=== PATIENT | female | born 1955 | race Caucasian/White ===

== ENCOUNTER → 2016-11-07 | Outpatient (CLI) | payer BC ==
[~2016-11-07] MED LIST: ACETAMINOPHEN PO; ACETAMINOPHEN500 M6 PO; ASPIRIN ENTERI325 M1 PO; BAYER ASPIRIN325 M1 PO; CETIRIZINE HCL10 MG PO; FLONASE ALLERG9.9 ML; HYDROCODON-ACE1 EAC5 PO; VOLTAREN75 MG PO
--- NOTE | ~2016-11-07 | CO ---
Unit #: [id number] #: [id number] Patient: RAVI REEVES [id number] [address] [place], [place] [address] [id number] O MR#: [id number] NAME: RAVI REEVES ROOM: Age: 61 Sex: F Admission Date: 11/07/2016 : 1955 Attending Physician: Bobo Mccollum M.D. Primary Care Physician: Oscar Layton M.D. Consultation Date: 11/07/2016 CONSULTATION REPORT REASON FOR CONSULT Preoperative medical evaluation prior to left total hip arthroplasty, scheduled by Dr. Mccollum for 11/14/2016. HISTORY OF PRESENT ILLNESS The patient is a 61-year-old female, who presents to preprocedural screening for the reasons indicated above. The patient underwent preoperative medical evaluation on 08/08/2016 prior to right total hip arthroplasty by Dr. Mccollum, which was performed on 08/22/2016. The patient did well perioperatively and has done well postoperatively with regard to the right total hip arthroplasty. She has not had shortness of breath, dyspnea on exertion, paroxysmal nocturnal dyspnea, or orthopnea. No lightheadedness, dizziness, presyncope, syncope, or palpitations. No chest, arm, neck, jaw, back pain or pressure. She has not had myocardial infarction, congestive heart failure, CVA, TIA, developed diabetes, or chronic kidney disease since the last evaluation. She has no open wounds on her skin. Denies fever or chills, and is otherwise asymptomatic except for pain in the left hip at the time of this interview. PAST MEDICAL HISTORY 1. Osteoarthritis. 2. Obesity, BMI of 36. 3. Allergic rhinitis. 4. Slightly hard of hearing. 5. Degenerative disk disease. 6. Baseline right bundle-branch block. PAST SURGICAL HISTORY 1. T and A. 2. Bilateral mastoidectomy. 3. Left eardrum reconstruction. 4. Left ear tube placement. 5. x1. 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 7. Tubal ligation. 8. Right hip replacement. The patient denies personal and family history of complications to anesthesia. ALLERGIES Denies latex allergy. Denies medication allergies. CURRENT MEDICATIONS Unit #: [id number] #: [id number] Patient: RAVI REEVES Hydrocodone/acetaminophen 10/325 mg tablet one p.o. at bedtime p.r.n. pain, acetaminophen 1000 mg p.o. every 6 hours during the day p.r.n. pain. SOCIAL HISTORY Denies tobacco use. No illicit drug use. Rarely consumes a beer. FAMILY HISTORY Stroke, type 2 diabetes mellitus, coronary artery disease, osteoarthritis, colon cancer, and hypertension. REVIEW OF SYSTEMS Urinary incontinence without dysuria, urinary frequency. No nausea, vomiting, or diarrhea. A 10-point review of systems is conducted and is otherwise negative except as indicated under history of present illness above. PHYSICAL EXAMINATION GENERAL: A 61-year-old female, awake, alert, in no acute distress. VITAL SIGNS: Temperature 97.6, heart rate 78, respiratory rate 16, blood pressure 141/76, oxygen saturation 96% on room air. HEENT: Atraumatic, normocephalic. Sclerae anicteric. No discharge from eyes, ears, or nares. LYMPH: No preauricular, postauricular, tonsillar, submental, or anterior-posterior cervical adenopathy. ENDOCRINE: No thyromegaly, thyroid nodules, or tenderness. RESPIRATORY: Clear to auscultation in all dai bilaterally without wheezes, rhonchi, or rales. CARDIOVASCULAR: S1, S2. Regular rate and rhythm without murmur or rub. GI: Bowel sounds are positive x4. Soft, nontender, nondistended. EXTREMITIES: No edema, cyanosis, or clubbing. MUSCULOSKELETAL: Strength 5/5 in all extremities bilaterally to flexion and extension. NEUROLOGIC: Alert and oriented x3. Speech clear. Follows commands. DIAGNOSTIC STUDIES LABORATORY RESULTS: WBC 7.1, hemoglobin 12.8, hematocrit 40.5, platelet count 292,000. Sodium 139, potassium 4.8, chloride 102, CO2 of 29, glucose 87, BUN 18, creatinine 0.8, calcium 9.7, AST 16, ALT 17, alkaline phosphatase 78, bilirubin total 0.5, total protein 7.3, albumin 4.1. PT 10.2, INR 1.0. Urinalysis; negative with culture not indicated. Blood type A positive, antibody screen negative. MRSA nasal swab screen pending at this time. IMAGING STUDIES: Two-view chest x-ray report, date of study 08/08/2016, conclusion; normal chest. CARDIOVASCULAR STUDIES: 12-lead EKG, date of study 08/08/2016; normal sinus rhythm. Right bundle-branch block. IMPRESSION The patient is a 61-year-old female, who presents to preprocedural screening for; 1. Preoperative medical evaluation prior to left total knee arthroplasty, scheduled by Dr. Mccollum. The patient's Luna Revised Cardiac Risk Index is equal to 0.4%. This represents the patient's perioperative risk of cardiac , fatal or nonfatal myocardial infarction, cardiopulmonary arrest, arrhythmia and/or pulmonary edema. This has been discussed in Unit #: [id number] #: [id number] Patient: RAVI REEVES Windy detail with the patient. She wishes to proceed with surgery as scheduled at this time. 2. Obesity, BMI of 36. 3. Allergic rhinitis, stable. 4. Hardness of hearing. 5. Osteoarthritis. 6. Degenerative disk disease. 7. Baseline right bundle-branch block. The patient is asymptomatic. She has been offered preoperative cardiac consult. She tells me she has an appointment to be seen with her primary care physician postoperatively and prefers to wait until that time. All the patient's preoperative workup information including 12-lead EKG have been faxed to the patient's primary care physician's office. Thank you for allowing us to participate in the care of this patient. We will gladly follow her for postop medical management pending order of Dr. Mccollum. Dictated by... Gt Garcia M.D. RLC/flako TD: 11/07/2016 13:13 JOB #: [id number] CONSULTATION REPORT Page 1 of 1 X Harriet Schilling APRN CONSULTATION REPORT
[2016-11-07 08:20] LABS: HEMATOCRIT 40.5 % (35.0-45.0); HEMOGLOBIN 12.8 gm/dL (12.0-16.0); MEAN CORPUSCULAR HGB CONC 31.7 g/dL (30-36); MEAN PLATELET VOLUME 7.5 FL (6.5-11.5); RED BLOOD COUNT 5.13 X10e (3.90-5.30); RED CELL DISTRIBUTION WIDTH 16.1 % (11.0-15.5); WHITE BLOOD COUNT 7.1 X10e3 (4.0-10.5)
[2016-11-07 08:34] LABS: PROTHROMBIN TIME (PATIENT) 10.2 SECONDS (9.6-11.5)
[2016-11-07 09:24] LABS: ALBUMIN SERUM 4.1 g/dL (3.5-5.0); BILIRUBIN,TOTAL 0.5 mg/dL (0.2-2.0); BUN/CREATININE RATIO 22.5; CALCIUM SERUM 9.7 mg/dL (8.4-10.2); CREATININE SERUM 0.8 mg/dL (0.6-1.4); GLOM FILT RATE Estimated 79.6 mL/min (>60); POTASSIUM 4.8 mmol/L (3.5-5.1); PROTEIN TOTAL SERUM 7.3 g/dL (6.0-8.3)
[2016-11-07 10:21] LABS: URINE APPEARANCE CLEAR; URINE BILIRUBIN NEG (NEG); URINE BLOOD TRACE (NEG); URINE COLOR YELLOW; URINE GLUCOSE NEG (NEG); URINE KETONE NEG (NEG); URINE LEUKOCYTE ESTERASE NEG (NEG); URINE NITRATE NEG (NEG); URINE PH 5.5 (5-8); URINE PROTEIN NEG (NEG); URINE SPECIFIC GRAVITY 1.017 (1.003-1.035); URINE UROBILINOGEN 0.2 MG/DL (NEG)
[2016-11-07 10:23] LABS: U HYALINE CASTS AUWI 0-2 /[LPF]; URBCS1 AUWI 0-2 /[HPF] (0-2); URINE BACTERIA AUWI NEG (NEGATIVE); URINE SQUAMOUS EPITHELIAL CELL OCC /[HPF]; UWBCS1 AUWI 0-2 (0-5)
[2016-11-07 10:24] LABS: CULTURE INDICATED? NO; URINE SOURCE CLEAN CATCH
== END | disposition home or self-care (01) ==
LOC: CAMB 07:29
PROVIDERS: Orthopaedic Surgery
DX: Z01.812 Encounter for preprocedural laboratory examination (principal); M16.12 Unilateral primary osteoarthritis, left hip; E66.9 Obesity, unspecified; J30.9 Allergic rhinitis, unspecified; I45.10 Unspecified right bundle-branch block; Z68.36 Body mass index [BMI] 36.0-36.9, adult
CPT/HCPCS: 36415; 80053; 81003; 85027; 85610; 86850; 86900; 86901; 87070

== ENCOUNTER 2016-11-14 05:27 | Inpatient (IN) | payer BC ==
--- NOTE | ~2016-11-14 | CR144 ---
[facility] A Service of [facility] RADIOLOGY TEXT RESULTS PATIENT: RAVI REEVES LOCATION: [place] [id number] : [birth year] UNIT #: [id number] AGE: [address]: Bobo Mccollum MD SEX: F ORDER DR: [id number] [facility] [address] [facility]. [place], [place] [address] [id number] I MR#: [id number] Acc #: [id number] NAME: RAVI REEVES : 1955 SEX: F STUDY DATE/TIME: 11/14/2016 09:17 UNIT: [facility] ROOM: [facility] STUDY DESCRIPTION: CR Hip 1 View Lt Attending Physician: Bobo Mccollum M.D. Ordering Physician: Bobo Mccollum M.D. Primary Care Physician: Oscar Layton M.D. MEDICAL IMAGING REPORT This report is preliminary unless electronic signature is present EXAM Left hip one-view 11/14/2016 0917 hours CLINICAL HISTORY Postop total hip replacement, history of hip pain. COMPARISON None. FINDINGS Single AP view left hip demonstrates postop change of left hip replacement with nonscrewed acetabular component and a long stem noncemented femoral component in anatomic alignment. No fracture seen. IMPRESSION Postop change left hip replacement with nonscrewed acetabular component and long stem femoral component in anatomic alignment. No fracture seen. Dictated by... Mary Teran M.D. THIS IS AN ELECTRONICALLY VERIFIED REPORT Mary Teran M.D. at 11/14/2016 2:28 PM YEVGENIY/ada TD: 11/14/2016 11:21 JOB #: [id number] MEDICAL IMAGING REPORT Page 1 of 1 COPY
--- NOTE | ~2016-11-14 | DS ---
Unit #: [id number] #: [id number] Patient: RAVI REEVES [id number] [address] [address] [id number] I MR#: [id number] NAME: RAVI REEVES. ROOM: [facility] Age: 61 Sex: F Admission Date: 11/14/2016 : 1955 Discharge Date: 11/15/2016 Attending Physician: Bobo Mccollum M.D. Primary Care Physician: Oscar Layton M.D. DISCHARGE SUMMARY ADMITTING DIAGNOSES Left hip osteoarthritis. DISCHARGE DIAGNOSES Left hip osteoarthritis. HOSPITAL COURSE On 11/14/2016 Ms. Reeves underwent a left total hip arthroplasty. She tolerated the procedure well. She was transported to the fourth floor. She underwent physical therapy, medical management and anticoagulation therapy. She is doing well and is ready to be discharged. DISCHARGE CONDITION Stable. DISCHARGE DISPOSITION Discharge home with [facility]. DISCHARGE MEDICATIONS 1. Routine home medications. 2. Ponder 10/325 mg. 3. Aspirin 325 mg p.o. b.i.d. FOLLOWUP/DISCHARGE INSTRUCTIONS 1. Ms Reeves is going to be discharged to home with [facility] to follow. The patient is on aspirin for DVT prophylaxis. No labs are to be drawn at this time. 2. Physical therapy is to be done for dislocation precaution and ambulation. The patient is weightbearing as tolerated. 3. Follow-up appointment with Dr. Mccollum is in six weeks. Dictated by... Annmarie Campbell P.A.C. for Leia Villalba/gz TD: 11/15/2016 11:33 JOB #: [id number] Unit #: [id number] #: [id number] Patient: RAVI REEVES DISCHARGE SUMMARY Page 1 of 1 X Annmarie Campbell DISCHARGE SUMMARY
--- NOTE | ~2016-11-14 | OR ---
Unit #: [id number] #: [id number] Patient: RAVI REEVES [id number] [address] [place], [place] [address] [id number] I MR#: [id number] NAME: RAVI REEVES ROOM: [facility] Date of Procedure: 11/14/2016 Admission Date: 11/14/2016 Surgeon: Bobo Mccollum M.D. : 1955 Attending Physician: Bobo Mccollum M.D. Primary Care Physician: Oscar Layton M.D. OPERATIVE REPORT PREOPERATIVE DIAGNOSIS Primary localized osteoarthritis of the left hip. POSTOPERATIVE DIAGNOSIS Primary localized osteoarthritis of the left hip. PROCEDURE PERFORMED Left total hip. ASSISTANTS Adrian and Jason. ANESTHESIA General. ESTIMATED BLOOD LOSS 300 mL. DESCRIPTION OF PROCEDURE The patient was brought to the holding room. She was given 2 g of Ancef, brought back to the operating room, given a general anesthetic. The Ancef will be continued postop, but discontinued within 23 hours the start time of surgery. She was then placed in decubitus position with the left side up. Left hip was prepped and draped in a sterile fashion. Modified Aufranc incision was mapped out and made. The subcutaneous dissected away and the fascia split longitudinally. Short rotators were taken down with the cautery unit. The posterior hip capsule was identified and this was T'd open. The hip was dislocated. The neck osteotomy performed. The head fragment removed and then the femur retracted anteriorly. The labrum was debrided and then the acetabulum was progressively reamed with basket reamers up to a size 51. A 52 mm sector pinnacle cup with Gription was inserted in 40 degrees of abduction and 20 degrees of forward flexion. A neutral 36 liner was positioned in the cup. This was a trial liner. The piriformis sinus was cleaned out with a rongeur and a knife. Starter reamer passed down and rigid reamers were used up to a size 3. The broaches were used up to a size 3 and then a trial reduction was carried out with a standard offset neck and first a 0 and then a +5, 36 head. The +5 appeared to give better leg length approximation and the hip was quite stable. We then removed all the trials. The ropivacaine mixture was injected. The patient then had the real liner impacted into the cup. The real stem was inserted in 20 degrees of anteversion. Another trial reduction was carried out. We found that the +5, 36 head was the Unit #: [id number] #: [id number] Patient: RAVI REEVES appropriate size, so a ceramic +5, 36 head was opened and applied. The hip was reduced. Stability was excellent. The wound was irrigated with a dilute Betadine solution and then bacitracin and then the wound was closed using 0 Vicryl in the capsule, #1 running STRATAFIX absorbable suture in the fascia, 0 and 2-0 Vicryl in the subcutaneous, and héctor in the skin. Blood loss was 300 mL. Dictated by... Leia Villalba/flako TD: 11/15/2016 00:27 JOB #: [id number] OPERATIVE REPORT Page 1 of 1 X Bobo Mccollum MD PROCEDURE OPERATIVE NOTE
[~2016-11-14 05:27] MED LIST changes: -ACETAMINOPHEN500 M6 PO; -ASPIRIN ENTERI325 M1 PO; -HYDROCODON-ACE1 EAC5 PO
[2016-11-14 06:29] LABS: PROTHROMBIN TIME (PATIENT) 10.4 SECONDS (9.6-11.5)
[2016-11-14] MEDS ORDERED: ACETAMINOPHEN500 M6 PO (09:05)
[2016-11-14] MEDS ORDERED: HYDROCODON-ACE1 EAC5 PO (10:52)
[2016-11-15 03:58] LABS: HEMATOCRIT 31.4 % (35.0-45.0); MEAN CORPUSCULAR HGB CONC 31.7 g/dL (30-36); MEAN PLATELET VOLUME 8.2 FL (6.5-11.5); RED BLOOD COUNT 3.98 X10e (3.90-5.30); RED CELL DISTRIBUTION WIDTH 15.7 % (11.0-15.5); WHITE BLOOD COUNT 9.1 X10e3 (4.0-10.5)
[2016-11-15 04:23] LABS: CALCIUM SERUM 8.3 mg/dL (8.4-10.2); CREATININE SERUM 0.8 mg/dL (0.6-1.4); GLOM FILT RATE Estimated 79.6 mL/min (>60); POTASSIUM 3.9 mmol/L (3.5-5.1)
[2016-11-15] MEDS ORDERED: HYDROCODON-ACE1 EAC5 PO (09:50)
[2016-11-15] MEDS ORDERED: ASPIRIN ENTERI325 M1 PO (09:52)
== END 2016-11-15 11:34 | disposition home health service (06) | DRG 470 ==
LOC: CSUR 05:27 → CPACUOF 06:50 → CSUR 07:00 → C4B 08:58 → CPACUOF 08:58 → CSUR 08:58 → C4B 10:09 → CPACUOF 10:09 → C4B 11-15 11:34
PROVIDERS: Orthopaedic Surgery
PROC: 0SRB0JZ Replacement of Left Hip Joint with Synthetic Substitute, Open Approach (ICD-10-PCS; principal; 2016-11-14 07:00)
DX: M16.12 Unilateral primary osteoarthritis, left hip (principal); J30.9 Allergic rhinitis, unspecified; Z85.3 Personal history of malignant neoplasm of breast
CPT/HCPCS: 73501; 80048; 83735; 85027; 85610; 88304; 88311; 97110; 97116; 97162; 97165; 97535; C1776; J0171; J0690; J0735; J1100; J1885; J2250; J2405; J2795; J3010